=== PATIENT | female | born 1970 ===

== ENCOUNTER 2021-11-25 08:00 | Emergency (ER) | payer BC ==
[2021-11-25] MEDS ORDERED: diphenhydrAMINE 50 MG/ML SDV IVPUSH ONE (20:26)
[2021-11-25] MEDS ORDERED: Acetaminophen 500 MG Tab PO ONE (20:46)
== END 2021-11-25 21:31 | disposition home or self-care (01) ==
LOC: LB.ED 08:00
DX: T80.92XA Unspecified transfusion reaction, initial encounter (principal)
CPT/HCPCS: 96374; 99283; A9270; J1200